=== PATIENT | male | born 1965 | race Caucasian/White ===

== ENCOUNTER → 2023-06-03 15:14 | Outpatient (REF) | payer OTHER, SELFPAY | LOC: DHCBC MAIN 15:14 | PROVIDERS: ATTENDING PHYSICIAN Internal Medicine; FAMILY PHYSICIAN Family Medicine | DX: I33.0 Acute and subacute infective endocarditis (principal); I35.1 Nonrheumatic aortic (valve) insufficiency; I44.4 Left anterior fascicular block; I10 Essential (primary) hypertension; I77.810 Thoracic aortic ectasia | CPT/HCPCS: 93306 ==

== ENCOUNTER → 2024-05-19 14:33 | Outpatient (REF) | payer OTHER, SELFPAY | LOC: HWRCS 14:33 | PROVIDERS: ATTENDING PHYSICIAN Nurse Practitioner; FAMILY PHYSICIAN Family Medicine | DX: I33.0 Acute and subacute infective endocarditis (principal) | CPT/HCPCS: 93306 ==

== ENCOUNTER 2024-06-11 06:20 | Day surgery (SDC) | payer OTHER, SELFPAY | END 2024-06-11 11:36 | disposition home or self-care (01) | LOC: GI 06:20 | PROVIDERS: ATTENDING PHYSICIAN Internal Medicine Gastroenterology | DX: Z12.11 Encounter for screening for malignant neoplasm of colon (principal); K64.8 Other hemorrhoids; K63.5 Polyp of colon; Z86.0100 Personal history of colon polyps, unspecified | CPT/HCPCS: 45380; 88305 ==